=== PATIENT | female | born 2000 | race Two or more races ===

== ENCOUNTER → 2023-06-27 11:41 | Outpatient (REF) | payer BC, OTHER, SELFPAY ==
[2023-06-27 12:54] LABS: ALT (SGPT) 20 U/L (0-35); AST (SGOT) 27 U/L (14-36); Albumin 4.8 g/dl (3.5-5.0); Alkaline Phosphatase 45 U/L (38-126); Total Bilirubin 0.9 mg/dl (0.2-1.3)
[2023-06-27 13:58] LABS: Hepatitis C Antibody Negative (Negative)
[2023-06-30 15:01] LABS: HCV Quant by NAAT IU/mL Not Detected; HCV Quant by NAAT Interp Not Detected (Not Detected); HCV Quant by NAAT Log IU/mL Not Detected log IU/mL
== END ==
LOC: OHS 11:41
PROVIDERS: ATTENDING PHYSICIAN Nurse Practitioner Family
DX: Z23 Encounter for immunization (principal)
CPT/HCPCS: 36415; 80076; 86803; 87522

== ENCOUNTER → 2023-11-10 10:39 | Outpatient (REF) | payer BC, OTHER, SELFPAY ==
[2023-11-10 11:50] LABS: ALT (SGPT) 17 U/L (0-35); AST (SGOT) 29 U/L (14-36); Albumin 4.7 g/dl (3.5-5.0); Alkaline Phosphatase 42 U/L (38-126); Direct Bilirubin 0.1 mg/dl (0.0-0.4); Total Bilirubin 1.2 mg/dl (0.2-1.3); Total Protein 7.4 g/dl (6.3-8.2)
[2023-11-10 21:24] LABS: Hepatitis C Antibody Negative (Negative)
== END ==
LOC: OHS 10:39
PROVIDERS: ATTENDING PHYSICIAN Nurse Practitioner Family
DX: Z23 Encounter for immunization (principal)
CPT/HCPCS: 36415; 80076; 86803; 87522

== ENCOUNTER → 2024-12-09 09:11 | Outpatient (REF) | payer OTHER, SELFPAY | LOC: REG 09:11 | PROVIDERS: ATTENDING PHYSICIAN Nurse Practitioner Family | DX: Z23 Encounter for immunization (principal) | CPT/HCPCS: 36415; 86480; 86706 ==